=== PATIENT | female | born 1975 | race Caucasian/White ===

== ENCOUNTER 2018-02-05 04:04 | Emergency (ER) | payer MEDICAID ==
[~2018-02-05] VITALS: Ht 162.6 cm; Wt 72.6 kg
--- NOTE | 2018-02-05 04:07 | NUR ---
Report given to Shi SALEH.
--- NOTE | 2018-02-05 04:07 | NUR ---
PATIENT AMBULATED TO ER BED 11.
--- NOTE | 2018-02-05 04:08 | NUR ---
42/F CAME IN W C/O LOWER BACK PAIN EXACERBATED BY CONSTANT WALKING X 3 DAYS. DENIES TRAUMA/INJURY. AMB WITH STEADY GAIT,DENIES PERIPHERAL NUMBNESS/TINGLING. PMH: SPINAL FUSION, HYSTERECTOMY, APPY; DENIES OTC
[2018-02-05 04:10] VITALS: BP 125/80
[2018-02-05] MEDS ORDERED: KETOROLAC 60 MG/2 ML VIAL IM ONE (04:25)
--- NOTE | 2018-02-05 05:05 | NUR ---
Patient discharged with v/s stable. Written and verbal after care instructions given and explained. Patient alert, oriented and verbalized understanding of instructions. Ambulatory with steady gait. All questions addressed prior to discharge. ID band removed. Patient advised to follow up with PMD. Rx of NAPROSYN, PREDNISONE given. Patient educated on indication of medication including possible reaction and side effects. Opportunity to ask questions provided and answered.
[2018-02-05 05:11] VITALS: BP 128/76
== END 2018-02-05 05:05 | disposition home or self-care (01) ==
LOC: MED 04:04
DX: S46.911A Strain of unspecified muscle, fascia and tendon at shoulder and upper arm level, right arm, initial encounter (principal); M54.16 Radiculopathy, lumbar region; Z59.0 Homelessness; X58.XXXA Exposure to other specified factors, initial encounter; Y93.89 Activity, other specified; Y92.89 Other specified places as the place of occurrence of the external cause; Y99.8 Other external cause status
CPT/HCPCS: 72110; 73030; 96372; 99284; J1885

== ENCOUNTER 2022-11-30 14:14 | Emergency (ER) | payer MEDICAID ==
[~2022-11-30] VITALS: Ht 162.6 cm; Wt 77.1 kg
[2022-11-30 14:16] VITALS: BP 112/67; PULSE 111; RESP 21; TEMP 99; O2SAT 98
--- NOTE | 2022-11-30 14:35 | NUR ---
PT ARRIVED BY AMBULANCE. PT PLACED IN BED 2 AND TRIAGED. PT AWAITING TO BE SEEN BY MD.
[2022-11-30] MEDS ORDERED: NACL 0.9% 2,000 ML IV ONE (15:20)
[2022-11-30 15:35] LABS: HEMATOCRIT 40.6 % (36-48); HEMOGLOBIN 13.5 g/dL (12.0-16.0); MEAN CORPUSCULAR HEMOGLOBIN 29 pg (27-31); MEAN CORPUSCULAR HGB CONC 33 g/dL (33-37); MEAN CORPUSCULAR VOLUME 87.4 fL (80-94); PLATELET COUNT (AUTO) 282 K/uL (140-450); RED BLOOD CELL COUNT(AUTO) 4.65 MIL/uL (4.20-5.40); RED CELL DISTRIBUTION WIDTH 13.8 % (11.6-13.7); WHITE BLOOD COUNT (AUTO) 11.7 K/uL (4.8-10.8)
[2022-11-30 15:51] LABS: ALBUMIN 3.2 g/dL (3.4-5.0); ANION GAP 13.3 (8-16); ASPARTATE AMINOTRANSFERASE 21 U/L (15-37); BASOPHILS % (MANUAL) 0 % (0-2); CHLORIDE 103 mmol/L (98-107); EOSINOPHILS % (MANUAL) 0 % (0-4); GFR ARICAN-AMERICAN 76 mL/min (>90); GLUCOSE 147 mg/dL (74-106); LIPASE 50 U/L (73-393); LYMPHOCYTES % (MANUAL) 5 % (20-46); MAGNESIUM 1.5 mg/dL (1.8-2.4); MONOCYTES % (MANUAL) 2 % (5-12); PHOSPHORUS 1.4 mg/dL (2.5-4.9); POTASSIUM 3.3 mmol/L (3.5-5.1); SODIUM SERUM 136 mmol/L (136-145); TOTAL BILIRUBIN 0.6 mg/dL (0.0-1.0); UREA NITROGEN, BLOOD 11 mg/dL (7-18)
[2022-11-30] MEDS ORDERED: SODIUM PHOS / POTASSIUM PHOS 1 PKT PDR PO ONE (15:55)
[2022-11-30] MEDS ORDERED: MAG SULF 2000 MG/WATER PREMIX 50 ML IV ONE (15:55)
--- NOTE | 2022-11-30 16:47 | NUR ---
Patient was offered a warm blanket, call lgiht is within reach. All needs met by staff.
--- NOTE | 2022-11-30 17:10 | NUR ---
MEDICATED PT ORDERED. PT SITTING UP IN BED WITHOUT DISTRESS.
--- NOTE | 2022-11-30 17:32 | NUR ---
Patient is laying in bed, call light is within reach. Vital signs stable.
[2022-11-30 17:36] LABS: APPEARANCE,URINE CLEAR (CLEAR); BILIRUBIN,URINE NEGATIVE (NEGATIVE); BLOOD, URINE NEGATIVE (NEGATIVE); COLOR,URINE YELLOW (YELLOW); LEUKOCYTE ESTERASE ,URINE NEGATIVE (NEGATIVE); NITRITE, URINE NEGATIVE (NEGATIVE); PH,URINE 5.5 (5.0-9.0); UGLUCOSE NEGATIVE (NEGATIVE)
[2022-11-30 17:56] LABS: BARBITURATE, URINE NEGATIVE ng/ml (NEG <=200); BENZODIAZEPINE, URINE NEGATIVE ng/mL (NEG <=200); CANNABINOID, URINE NEGATIVE ng/mL (NEG <=50); COCAINE, URINE NEGATIVE ng/mL (NEG <=300); OPIATE, URINE NEGATIVE ng/mL (NEG <=2000); PHENCYCLIDINE SCREEN,URINE NEGATIVE ng/mL (NEG <=25)
--- NOTE | 2022-11-30 18:57 | NUR ---
Patient had one episode of vomiting. Dr. Singleton made aware.
[2022-11-30] MEDS ORDERED: ONDANSETRON 4 MG/2 ML VIAL IVP ONE (19:00)
--- NOTE | 2022-11-30 19:30 | NUR ---
Report given to THERESE Mathew for transfer of care.
--- NOTE | 2022-11-30 19:35 | NUR ---
pt resting on bed. not in distress. on monitor. call light within reach. pt instructed on how to use call light. pt returned demonstration. all needs met at this time. bed locked in lowest position. side rails x2 for safety.
--- NOTE | 2022-11-30 19:50 | NUR ---
informed dr. Paz of pt's oral temp 101.1
--- NOTE | 2022-11-30 19:50 | NUR ---
pt. reports of 7/10 body ache. informed ermd. ermd verbalized to order tylenol and proceed for discharge.
[2022-11-30] MEDS ORDERED: ACETAMINOPHEN EXTRA STRENGTH 500 MG TAB PO ONE (19:55)
[2022-11-30 20:50] VITALS: BP 128/68; PULSE 90; RESP 29; TEMP 99.4; O2SAT 96
--- NOTE | 2022-11-30 20:50 | NUR ---
Patient discharged with v/s stable. Written and verbal after care instructions given and explained. Patient verbalized understanding. Ambulatory with steady gait. All questions addressed prior to discharge. Advised to follow up with PMD.
== END 2022-11-30 20:50 | disposition home or self-care (01) ==
LOC: MED 14:14
DX: E86.0 Dehydration (principal); E87.6 Hypokalemia; E83.39 Other disorders of phosphorus metabolism; E83.51 Hypocalcemia; E83.42 Hypomagnesemia; T67.5XXA Heat exhaustion, unspecified, initial encounter; X58.XXXA Exposure to other specified factors, initial encounter; Y93.89 Activity, other specified; Y92.89 Other specified places as the place of occurrence of the external cause; Y99.8 Other external cause status
CPT/HCPCS: 36415; 80053; 80305; 81003; 83690; 83735; 84100; 85025; 96361; 96365; 96366; 96375; 99291; G0482; J2405; J3475; J7030